=== PATIENT | female | born 1990 | race Caucasian/White ===

== ENCOUNTER 2018-04-01 10:45 | Emergency (ER) | payer MEDICAID, SELFPAY ==
[2018-04-01 10:48] VITALS: BP 150/78; PULSE 94; RESP 18; TEMP 36.4; O2SAT 99
--- NOTE | 2018-04-01 10:55 | W.ED.GENAD ---
Discharge Plan Disposition Patient Disposition: HOME Condition: Good Discharge Details Chief Complaint: RespSymp Clinical Impression: Bronchitis, Cough Primary Care Provider: Justin Reece ED Provider: Tyler Fraser Home Meds and New Rx's Prescriptions: New azithromycin 250 mg tablet See Rx Instructions .ROUTE .COMPLEX Qty: 6 RF: 0 albuterol sulfate 90 mcg/actuation HFA aerosol inhaler 1 puff IH Q6H PRN (Reason: shortness of breath or wheezing) Qty: 6.7 RF: 0 benzonatate [Tessalon Perles] 100 mg capsule 100 mg PO TID PRN (Reason: cough) Qty: 30 RF: 0 No Action norgestimate-ethinyl estradiol [Sprintec (28)] 1 EACH tablet 1 tab-cap PO DAILY Qty: 3 RF: 3 Discharge Instructions Instructions: Acute Bronchitis (ED) Additional Instructions: Please take the inhaler and cough suppressant as directed. Please take the antibiotic if you do not notice improvement of your symptoms in the next 24-48 hours. If you notice any worsening of your symptoms, or any new symptoms such as vomiting, diarrhea, fever, chills, shortness of breath, chest pain, numbness, weakness, or fainting , please return immediately to the emergency department for reevaluation. Please follow up with your primary care provider as soon as possible for reassessment and reevaluation. As always, it was a pleasure participating in your medical care today. Referrals: Justin Reece MD [Primary Care Provider] - Medical Decision Making This is a 28-year-old female who presents with 1-1/2 weeks of cough with some mild associated shortness of breath. She has a strong family history of asthma but has never been tested herself. She has had no fever or chills. She has had some posttussive emesis. She has a roommate who is a smoker. Lung sounds are clear, vital signs are reassuring with heart rate of 94, respirations of 18, being afebrile with 99% O2 saturation. We will get an x-ray to rule out pneumonia with a longevity of her symptoms. We will give a breathing treatment to see if this improves her symptoms. We will test for influenza. 11:55 AM Patient's influenza and strep are both negative. Chest x-ray shows no evidence of significant pneumonia. Vital signs continue to be reassuring. The patient has a notable feeling of improvement with her breathing treatment. Negative workup, and reassuring vital signs I feel that the patient is safe for discharge home. We will give her an inhaler for home use, as well as Decadron here for what I feel may be a component of reactive airway disease. We will give her a prescription for azithromycin, however my recommendation to the patient is since the weekend is coming up only take the antibiotic if she does not note improvement over the next 24-48 hours. We discussed red flags which to return the patient understands. I have extensively reviewed the treatment plan and discharge instructions with the patient. I have addressed all patient concerns at this time. The patient was made aware of what symptoms to monitor for that would warrant a return to the emergency department. Discussed the plan with the patient, they demonstrate verbal understanding and agreement with our assessment and plan at this time. HPI General Date/Time Provider Initiated Documentation: 04/01/18 10:54. HPI Narrative: This is a 28-year-old female with no significant past medical history except a strong family history of asthma, and a roommate who smokes, who presents today for evaluation of cough. She has had a cough for the last 1.5 weeks. She denies any significant productive sputum. She has some associated shortness of breath. She denies any significant chest pain but does admit to a small amount of pain when she does cough. This is been present only over the last 1-2 days as her cough is worsened. The patient denies any hemoptysis, fever or chills. Denies PE risk factors such as recent long car rides, immobilization, recent surgery, prior history of DVT or PE, family history of PE or DVT, morbid obesity, and smoking, hemoptysis, history of cancer. She does take exogenous estrogen as control. There appears to be no particular aggravating or relieving component. She has not gotten her flu shot this year. Patient has no additional complaints at this time. Related Data Home Medications Medication Instructions Recorded Confirmed norgestimate-ethinyl estradiol 1 tab-cap PO DAILY #3 pack 10/20/17 [Sprintec] albuterol sulfate 1 puff IH Q6H PRN #6.7 gm 04/01/18 azithromycin See Rx Instructions .ROUTE 04/01/18 .COMPLEX #6 tab benzonatate [Tessalon Perles] 100 mg PO TID PRN #30 cap 04/01/18 Previous Rx's Medication Instructions Recorded norgestimate-ethinyl estradiol 1 tab-cap PO DAILY #3 pack 10/20/17 [Sprintec] albuterol sulfate 1 puff IH Q6H PRN #6.7 gm 04/01/18 azithromycin See Rx Instructions .ROUTE 04/01/18 .COMPLEX #6 tab benzonatate [Tessalon Perles] 100 mg PO TID PRN #30 cap 04/01/18 Allergies Allergy/AdvReac Type Severity Reaction Status Date / Time No Known Drug Allergies Allergy Unverified 10/20/17 08:22 pineapple Allergy Unverified 10/20/17 08:22 mushroom AdvReac Intermediate Itching Unverified 10/20/17 08:22 General Stated Complaint: RespSymp CHENG: 4 Review of Systems Review of Systems All systems reviewed & are unremarkable except as noted in HPI and below PFSH Medical History Anxiety Depression Family History Mother Thyroid disorder Father Essential hypertension Grandmother Ovarian cancer Social History Smoking/Tobacco Use Status: Never Exam Narrative Exam Narrative: 1.Const: Well-nourished, Well-developed, appearing stated age 2.Eyes: PERRL, no conjunctival injection, and symmetrical lids. 3.ENT: Atraumatic external nose and ears. Moist MM. Neck: Symmetric, trachea midline, No thyromegaly. No evidence of erythema in the canals, no evidence of effusion behind the tympanic membranes, no evidence of significant erythema in the posterior oropharynx. No significant cervical lymphadenopathy. 4.CVS: +S1/S2, No murmurs or gallops. Peripheral pulses 2+ and equal in all extremities. Brisk capillary refill in all extremities. 5.RESP: Unlabored respiratory effort. Clear to auscultation bilaterally. No wheezes rales or rhonchi 6.GI: Soft, Nontender/Nondistended, No hepatosplenomegaly. No guarding or rebound. 7.MSK: Normocephalic/Atraumatic, Extremities w/o deformity or ttp No cyanosis or clubbing, Normal movement of all extremities. No evidence of calf tenderness. No swelling of the lower extremities. 8.Skin: Warm, Dry. No rashes or lesions. 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 Sensation grossly intact, no focal neurologic deficits. 10.Psych: (AAO) x3. Appropriate mood and affect Course Vital Signs Temperature 36.4 C L 04/01/18 10:48 Pulse 94 H 04/01/18 10:48 Respiratory Rate 18 04/01/18 10:48 Blood Pressure 150/78 H 04/01/18 10:48 Pulse Oximetry 99 04/01/18 10:48 Temperature 36.4 C L 04/01/18 10:48 Temperature Source Temporal Artery Scan 04/01/18 10:48 Pulse 94 H 04/01/18 10:48 Respiratory Rate 18 04/01/18 10:48 Respiratory Effort Non-Labored 04/01/18 10:48 Blood Pressure 150/78 H 04/01/18 10:48 Blood Pressure Position Sitting 04/01/18 10:48 Pulse Oximetry 99 04/01/18 10:48 Oxygen Delivery Method Room Air 04/01/18 10:48 Oxygen Flow Rate 0 04/01/18 10:48
[2018-04-01] MEDS: Albuterol/Ipratropium 3 ML UPD VIAL UPD (11:03)
--- NOTE | 2018-04-01 11:30 | DI.RAD_ITS ---
SYMPTOM/DIAGNOSIS: COUGH PA AND LATERAL CHEST: The heart is normal in size. The lungs are clear. The mediastinal structures and pleura appear intact. CONCLUSION: Normal chest. No evidence of acute cardiopulmonary disease.
--- NOTE | 2018-04-01 11:40 | NUR.NOTE ---
patient returned from DI Nursing Note:
[2018-04-01 11:42] VITALS: PULSE 92; RESP 20; O2SAT 99
[2018-04-01] MEDS: Dexamethasone 4 MG TAB 12 MG PO (12:06)
[2018-04-01 12:11] VITALS: BP 120/81; PULSE 92; RESP 18; TEMP 37.4; O2SAT 100
== END 2018-04-01 12:17 | disposition home or self-care (01) ==
LOC: ER 12:21
PROVIDERS: Emergency Provider Student in an Organized Health Care Education/Training Program; PCP General Practice
DX: J20.9 Acute bronchitis, unspecified (principal); Z77.22 Contact with and (suspected) exposure to environmental tobacco smoke (acute) (chronic)
CPT/HCPCS: 87449; 87880; 99283; 71046; 87070; 87081; J7620; J8540

== ENCOUNTER 2019-01-06 10:18 | Outpatient (REF) | payer MEDICAID, SELFPAY ==
--- NOTE | 2019-01-06 09:00 | PAPFT_PTH ---
PATIENT: Zuleyka Newton LOC: PAT U#:[id number] AGE/SX: 28/F ROOM: RE01/06/[address]: Jordyn Hernandez MD : 1990 BED: DIS: 01/06/2019 SPEC #: [id number] RECD: 01/06/19 12:45 STATUS: CHRISTOPHER REQ #: [id number] CHANDRIKA: 01/06/19 09:[address]: Jordyn Hernandez DEPT: [facility] Cytology RECD BY: Elsy Huntley ENTERED: 01/06/19 12:46 SP TYPE: PAPFT OTHR DR: Justin Reece Tissues: 1 - CX/ENDOCX FOR PAP SMEARS Procedures: PAP THIN PREP/UVM Screening Comments: [id number]
[2019-01-12 14:57] LABS: Chlamydia Result Negative (Negative); Specimen Description CERVIX
[2019-01-12 14:58] LABS: GC Result Negative (Negative)
== END 2019-01-06 10:38 ==
LOC: LBN 10:18
PROVIDERS: PCP General Practice; Visit Provider Obstetrics & Gynecology
DX: Z11.3 Encounter for screening for infections with a predominantly sexual mode of transmission (principal); Z12.4 Encounter for screening for malignant neoplasm of cervix
CPT/HCPCS: 87491; 87591; 88142

== ENCOUNTER 2019-05-09 10:15 | Emergency (ER) | payer MEDICAID, SELFPAY ==
[2019-05-09 10:19] VITALS: BP 140/85; PULSE 89; RESP 18; TEMP 36.9; O2SAT 98
--- NOTE | 2019-05-09 11:11 | W.ED.GENAD ---
Discharge Plan Disposition Patient Disposition: HOME Condition: Stable Discharge Details Chief Complaint: GenMedical Clinical Impression: Nerve palsy, Shingles Primary Care Provider: Justin Reece ED Provider: Mariely Chandra Home Meds and New Rx's Prescriptions: New valacyclovir [Valtrex] 1 gram tablet 1,000 mg PO TID Qty: 21 RF: 0 No Action norgestimate-ethinyl estradiol [Sprintec (28)] 0.25-35 mg-mcg tablet 1 tab PO DAILY Qty: 28 RF: 11 albuterol sulfate 90 mcg/actuation HFA aerosol inhaler 1 puff IH Q6H PRN (Reason: shortness of breath or wheezing) Qty: 6.7 RF: 0 Discharge Instructions Instructions: Shingles (ED) Additional Instructions: Use anti-inflammatory [id number] such as ibuprofen. Be sure to have food in your stomach prior to taking this medication. Use Valtrex as prescribed. Wrist splint for comfort for the next 3 to 5 days. Rest activities as tolerated. For any development of rash have PCP follow-up promptly as discussed. Follow-up with PCP or orthopedic doctor for any persistence of numbness in the arm Return for worsening symptoms, alarming symptoms, any associated weakness of the arm or if sooner needed for concerns Referrals: Syed Cannon MD [ [facility] STAFF PHYSICIAN] - Discharge Data Discharge Date/Time-TO BE ENTERED AT DEPARTURE: 05/09/19 11:54 Medical Decision Making Is a 29-year-old patient presenting to the emergency room for complaints of a burning sensation over her upper spine for 2 days. Patient reports sensation of burning has entirely relieved. No pain of the neck or back reported at this time. Patient reports she fell asleep on her arm for approximately 5 to 10 minutes and awoke with tingling in her right hand. Patient reports tingling and sensation of numbness noted in the first and second digit with part of the third digit involved. Patient reports that tingling sensation has progressed and extended distally to proximally up the forearm, elbow and humerus. Patient denies any focal pain of the arm. Patient denies any obvious weakness of the hand or arm. Patient does report a history of shingles in the past and this is somewhat remnant of the prodrome prior to shingles. Patient denies any ill feeling at this time. Denies history of IV drug use. Again patient denies any head neck or back pain at this time. On exam patient has an intact neurologic exam, no obvious focal weakness noted of the hand. No palpable tenderness throughout the arm, full range of motion of all joints of the right arm. I did discuss at length the possibility of etiologies of her pain. Patient is primarily concerned with the possibility of shingles. Will provide patient antivirals if this is prodrome related to shingles. Also recommended possibility of rib splint for neuralgia. Patient possibly related to a palsy after sleeping on her arm although this was described as a very transient time in which she was laying on her arm for 5 to 10 minutes, I find it unlikely that this would result in an arm palsy however this remains in the differential. Patient does not toxic appearing, has no systemic symptoms at this time. Patient feels comfortable with conservative treatments, use of anti-inflammatories as well as wrist splint in addition to beginning Valtrex empirically and follow-up if not improving. Referral provided for orthopedics if needed for any persistent numbness or for any other concerns or complaints. HPI General Date/Time Provider Initiated Documentation: 05/09/19 10:29. HPI Narrative: Is a 29-year-old patient who presents for complaints of a burning and tingling sensation over her spine in the upper back which she noted for 2 days which has since resolved. Patient denies any associated neck pain with range of motion or back pain. Denies any injury or trauma. Patient reports she is now experiencing a tingling in her right thumb and first finger predominantly with some involvement of this third finger. Patient reports tingling noted originally at her hand but has reported a proximal radiation and involvement of the entire arm. Patient does have a history of shingles and reports this is somewhat similar in her experience presentation. Related Data Home Medications Medication Instructions Recorded Confirmed albuterol sulfate 1 puff IH Q6H PRN #6.7 gm 04/01/18 05/09/19 norgestimate 0.25 mg-ethinyl 1 tab PO DAILY #28 tab 01/06/19 05/09/19 estradiol 35 mcg tablet valacyclovir [Valtrex] 1,000 mg PO TID #21 tab 05/09/19 Previous Rx's Medication Instructions Recorded albuterol sulfate 1 puff IH Q6H PRN #6.7 gm 04/01/18 norgestimate 0.25 mg-ethinyl 1 tab PO DAILY #28 tab 01/06/19 estradiol 35 mcg tablet valacyclovir [Valtrex] 1,000 mg PO TID #21 tab 05/09/19 Allergies Allergy/AdvReac Type Severity Reaction Status Date / Time No Known Drug Allergies Allergy Unverified 05/09/19 10:23 pineapple Allergy Unverified 05/09/19 10:23 mushroom AdvReac Intermediate Itching Unverified 05/09/19 10:23 General Stated Complaint: GenMedical CHENG: 3 Review of Systems Constitutional Constitutional: Denies chills, Denies fatigue, Denies fever(s), Denies headache(s), Denies malaise and Denies weakness ENT Ears, Nose, Mouth, and Throat: Denies dizziness, Denies headache(s) and Denies neck pain Musculoskeletal Musculoskeletal: Reports back pain, Denies neck pain, Reports numbness and Reports tingling Integumentary/Breasts Skin/Breast: Reports rash and Reports wounds Neurologic Neurologic: Denies dizziness, Denies headache(s), Reports numbness, Reports tingling and Denies weakness Endocrine Endocrine: Denies fatigue [facility] Medical History Anxiety Depression Family History Mother Thyroid disorder Father Essential hypertension Grandmother Ovarian cancer Social History Smoking/Tobacco Use Status: Never Alcohol Intake: former Drug use: Occasionally Substance use type: marijuana Do you feel safe at home: Yes Do you feel safe in your relationship?: Yes Exam Narrative Exam Narrative: CONST: Healthy appearing patient, in no acute distress. Well hydrated. Alert and oriented. HENMT: Head nomocephalic, normal to inspection. Atraumatic. Hearing grossly normal. EYES: General normal appearance. Alignment normal. Eyelids normal. Conjunctiva normal. NECK: Normal visual inspection. FROM. Trachea midline. No Midline tenderness. No pain of the paraspinal neck. CHEST: Normal insepection of the chest. RESP: Normal respiratory effort. Speaking full sentences. No cough. No audible wheezing. No retractions. Breath sounds clear, full and equal bilaterally. No wheezing, rhonchi or rales. CARDIO: No JVD. No murmur, regular rate and rhythm. MUSCULOSKELETAL: Normal Gait. FROM of all extremities. No obvious palpable tenderness through the right shoulder, humerus, elbow, forearm, wrist or hand. Patient indicates the thumb and first finger as sided numbness. Patient is intact to sharp and dull sensation on exam throughout the hand and the forearm tested as proximal as the elbow. Commercial Engineer strength intact and equal bilaterally. Able to spread all fingers and hold against resistance, able to hold okay symbol, able to flex wrist against resistance. No obvious deficit of neurologic function of the hand. No bony pain with palpation. Pulses intact distally. SKIN: Normal. Dry. No rashes. NEURO: Alert and awake. Speech clear. PSYCH: Normal affect. Cooperative. Course Vital Signs Vital signs: Vital Signs Temperature 36.9 C 05/09/19 10:19 Pulse 89 05/09/19 10:19 Respiratory Rate 18 05/09/19 10:19 Blood Pressure 140/85 05/09/19 10:19 Pulse Oximetry 98 05/09/19 10:19 Temperature 36.9 C 05/09/19 10:19 Temperature Source Skin 05/09/19 10:19 Pulse 89 05/09/19 10:19 Respiratory Rate 18 05/09/19 10:19 Respiratory Effort Non-Labored 05/09/19 10:24 Blood Pressure 140/85 05/09/19 10:19 Blood Pressure Position Sitting 05/09/19 10:19 Pulse Oximetry 98 05/09/19 10:19 Oxygen Delivery Method Room Air 05/09/19 10:19 Oxygen Flow Rate 0 05/09/19 10:19 Pain Level 8 05/09/19 10:19
--- NOTE | 2019-05-09 17:01 | NUR.NOTE ---
Nursing Note: Needs PCP, to Care Management. Rashida Cr.
== END 2019-05-09 11:54 | disposition home or self-care (01) ==
PROVIDERS: Emergency Provider Physician Assistant; PCP General Practice
DX: B02.9 Zoster without complications (principal); G58.9 Mononeuropathy, unspecified
CPT/HCPCS: 29125; 99283; L3908

== ENCOUNTER 2019-07-27 01:33 | Outpatient (CLI) | payer MEDICAID, SELFPAY ==
[2019-07-27 14:12] LABS: HCT 38.5 % (36.0-46.0); HGB 13.2 g/dL (12.0-15.5); Mean Corp. HGB Concentration 34.3 g/dL (32.0-36.0); Mean Corpuscular Hemoglobin 31.4 pg (27.0-33.0); Mean Corpuscular Volume 91.7 fL (80-95); Mean Platelet Volume 10.2 fL (8.0-11.0); Platelet Count 246 x1000/uL (130-400); RBC Distribution Width 11.9 % (11.7-14.6); White Blood Cell Count 5.08 k/cumm (4.4-10.8)
[2019-07-27 15:10] LABS: TSH (W/Ref FT4) 1.39 uIU/mL (0.36-3.74)
[2019-07-27 15:28] LABS: HCG Quant, Pregnancy < 1 mIU/mL (1-3)
== END 2019-07-27 01:53 ==
PROVIDERS: PCP General Practice; Visit Provider Obstetrics & Gynecology Gynecology
DX: N93.9 Abnormal uterine and vaginal bleeding, unspecified (principal)
CPT/HCPCS: 36415; 85027; 84443; 84702

== ENCOUNTER 2019-11-11 10:16 | Emergency (ER) | payer MEDICAID, SELFPAY ==
[2019-11-11 10:25] VITALS: BP 113/76; PULSE 90; RESP 16; TEMP 36.2; O2SAT 98
[2019-11-11 11:16] LABS: Absolute Basophil Count 0.03 10^3/uL (0.0-0.2); Absolute Eosinophil Count 0.07 10^3/uL (0.0-0.7); Absolute Lymphocyte Count 1.78 10^3/uL (1.2-3.4); Absolute Monocyte Count 0.52 10^3/uL (0.1-0.8); Absolute Neutrophil Count 1.78 10^3/uL (1.2-6.7); Basophils % 0.7; Eosinophils % 1.7; HCT 40.9 % (36.0-46.0); HGB 13.9 g/dL (11.2-15.7); Lymphocytes % 42.6; MCH 31.3 pg (27.0-33.0); MCV 92.1 fL (80-95); MPV 10.5 fL (8.0-11.0); Monocytes % 12.4; Neutrophils % 42.6; Nucleated RBC 0 %; Platelet Count 226 10^3/uL (130-400); RBC 4.44 10^6/uL (3.93-5.22); RDW 11.9 % (11.7-14.6); RDW-SD 40.1 fL; WBC 4.18 10^3/uL (4.4-10.8)
[2019-11-11 11:30] LABS: PTT Activated 25.6 sec (21.0-31.4); Prothrombin Time 9.8 sec (9.3-11.0)
[2019-11-11 11:31] LABS: ALT 15 U/L (14-59); AST 13 U/L (15-37); Albumin 3.4 g/dL (3.4-5.0); Alkaline Phosphatase 56 U/L (46-116); Anion Gap 6.4 mmol/L (3-11); BUN 9 mg/dL (7-18); Bilirubin, Total 0.5 mg/dL (0.2-1.0); CO2 26.6 mmol/L (21.0-32.0); CREATININE 0.68 mg/dL (0.55-1.02); Calcium 8.4 mg/dL (8.5-10.1); Chloride 104 mmol/L (98-107); Glucose 88 mg/dL (74-106); Potassium 3.7 mmol/L (3.5-5.1); Sodium 137 mmol/L (136-145); Total Protein 7.4 g/dL (6.4-8.2)
--- NOTE | 2019-11-11 11:52 | ED.GENADUL_ITS ---
Discharge Plan Disposition Patient Disposition: HOME Condition: Stable Discharge Details Chief Complaint: RashLesion Clinical Impression: Ecchymosis Primary Care Provider: Unknown,Unknown ED Provider: Viktor Sanders Home Meds and New Rx's Prescriptions: Continued norethindrone-e.estradiol-iron [Loestrin Fe 1.5/30 (28-Day)] 1.5 mg-30 mcg (2 1)/75 mg (7) tablet 1 tab PO DAILY Qty: 84 RF: 4 albuterol sulfate 90 mcg/actuation HFA aerosol inhaler 1 puff IH Q6H PRN (Reason: shortness of breath or wheezing) Qty: 6.7 RF: 0 Discharge Instructions Instructions: Ecchymosis (ED) Additional Instructions: At this time is unclear exactly how you obtained the bruising on your leg however at the bruising does not look like a petechiae bruise in nature. Your laboratory values are unremarkable. Please watch for new or worsening symptoms and return to the ER for any concerns. I would like you to contact your prescribing provider on Wednesday to discuss if they would like you to initiate any new medications and for proper outpatient reevaluation. Discharge Data Discharge Date/Time-TO BE ENTERED AT DEPARTURE: 11/11/19 12:00 Medical Decision Making Patient is a 29-year-old female who was recently placed on escitalipram who has noticed an area on her left thigh of nontraumatic ecchymosis. There was concerned it may be a reaction to this medication, she has since discontinued the medication. She denies any other easy bruising or bleeding. No abnormal vaginal bleeding, no hematuria, no blood from her gums when she brushes her teeth. No ecchymosis is without any tenderness, warmth, induration, fluctuance or petechiae. Difficult to definitively say this is secondary to a medication reaction or simply potentially a mild trauma that she did not realize. We di scussed our options. Will obtain routine laboratory values to evaluate her blood count, coags, platelet count. Laboratory values are unremarkable. Patient has no additional questions or concerns and is comfortable with discharge. She will not begin taking her medication again and rather she will contact her primary care provider on Wednesday to discuss if a larger coagulopathy work-up is indicated and if any other medication should be prescribed. Patient was encouraged to return to the ER for new or worsening symptoms. Medical Records Medical records reviewed: Yes I reviewed the patient's medical records. Lab Data Lab results reviewed: Yes I reviewed the patient's lab results. Lab results narrative: Laboratory Tests Range/Units 11/11/19 11/11/19 11/11/19 11:10 11:10 11:10 WBC (4.4-10.8) 10^3/uL 4.18 L RBC (3.93-5.22) 10^6/uL 4.44 Hgb (11.2-15.7) g/dL 13.9 Hct (36.0-46.0) % 40.9 MCV (80-95) fL 92.1 MCH (27.0-33.0) pg 31.3 MCHC (32.0-36.0) % 34.0 RDW (11.7-14.6) % 11.9 Plt Count (130-400) 10^3/uL 226 MPV (8.0-11.0) fL 10.5 Immature Gran % 0.0 Neutrophils % 42.6 Lymphocytes % 42.6 Monocytes % 12.4 Eosinophils % 1.7 Basophils % 0.7 Absolute Neutrophils (1.2-6.7) 10^3/uL 1.78 Absolute Lymphocytes (1.2-3.4) 10^3/uL 1.78 Absolute Monocytes (0.1-0.8) 10^3/uL 0.52 Absolute Eosinophils (0.0-0.7) 10^3/uL 0.07 Absolute Basophils (0.0-0.2) 10^3/uL 0.03 PT (9.3-11.0) sec 9.8 INR (0.9-1.1) 1.0 APTT (21.0-31.4) sec 25.6 Sodium (136-145) mmol/L 137 Potassium (3.5-5.1) mmol/L 3.7 Chloride (98-107) mmol/L 104 Carbon Dioxide (21.0-32.0) mmol/L 26.6 Anion Gap (3-11) mmol/L 6.4 BUN (7-18) mg/dL 9 Creatinine (0.55-1.02) mg/dL 0.68 Estimated GFR/1.73 m2 (mL/min/1.73m2) >= 60.00 Glucose (74-106) mg/dL 88 Calcium (8.5-10.1) mg/dL 8.4 L Total Bilirubin (0.2-1.0) mg/dL 0.5 AST (15-37) U/L 13 L ALT (14-59) U/L 15 Alkaline Phosphatase (46-116) U/L 56 Total Protein (6.4-8.2) g/dL 7.4 Albumin (3.4-5.0) g/dL 3.4 HPI General Mode of arrival: ambulatory . Date/Time Provider Initiated Documentation: 11/11/19 10:29 . Limitations to Documentation: no limitations . Information obtained by: patient . HPI Narrative: This is a 29-year-old female with history of anxiety, depression, PTSD, abnormal uterine bleeding, presents to the ER after she noticed atraumatic, painless, bruising to her left leg. Patient reports that she noticed the initial bruising 3 days ago, contacted her primary care provider, and was told to stop taking her escitalopram. She began taking that medication 2-1/2 weeks earlier and they were concerned that her symptoms may be secondary to that medication. She noticed slightly more bruising around the same area last night so decided to come to the ER for further evaluation. She is currently asymptomatic. Denies feeling lightheaded, headache, visual changes, chest pain, shortness of breath, abdominal pain, nausea, vomiting, numbness, tingling, weakness. She denies history of easy bruising or bleeding. She denies any abnormal vaginal bleeding. She denies bleeding gums when she brushes her teeth. Denies any recent illness or trauma. Related Data Home Medications Medication Instructions Recorded Confirmed albuterol sulfate 1 puff IH Q6H PRN #6.7 gm 04/01/18 11/11/19 norethindrone 1.5 mg-ethinyl 1 tab PO DAILY #84 tab 07/24/19 11/11/19 estradiol 30 mcg(21)/iron 75 mg(7) tablet Previous Rx's Medication Instructions Recorded albuterol sulfate 1 puff IH Q6H PRN #6.7 gm 04/01/18 norethindrone 1.5 mg-ethinyl 1 tab PO DAILY #84 tab 07/24/19 estradiol 30 mcg(21)/iron 75 mg(7) tablet Allergies Allergy/AdvReac Type Severity Reaction Status Date / Time No Known Drug Allergies Allergy Unverified 11/11/19 10:37 pineapple Allergy Unverified 11/11/19 10:37 mushroom AdvReac Intermediate Itching Unverified 11/11/19 10:37 General Stated Complaint: RashLesion CHENG: 3 Review of Systems Constitutional Constitutional: Denies fatigue, Denies fever(s) and Denies weakness Cardiovascular Cardiovascular: Denies chest pain and Denies dyspnea Respiratory Respiratory: Denies cough and Denies dyspnea Gastrointestinal Gastrointestinal: Denies abdominal pain, Denies nausea and Denies vomiting Genitourinary Genitourinary: Denies abnormal vaginal bleeding and Denies hematuria Musculoskeletal Musculoskeletal: Denies back pain, Denies numbness and Denies tingling Integumentary/Breasts Skin/Breast: Denies rash Neurologic Neurologic: Denies numbness, Denies tingling and Denies weakness Endocrine Endocrine: Denies fatigue Hematologic/Lymphatic Hematologic/Lymphatic: Denies easy bleeding and Denies easy bruising (Up until this episode) [facility] Medical History Abnormal uterine bleeding (AUB) (Acute) while taking OCPs. TSH/CBC/hCG ordered. Anxiety Depression Family History Mother Thyroid disorder Father Essential hypertension Grandmother Ovarian cancer Social History Smoking/Tobacco Use Status: Never Alcohol Intake: former Drug use: Rarely Substance use type: marijuana Do you feel safe at home: Yes Do you feel safe in your relationship?: Yes Exam Const General: cooperative, healthy appearing, comfortable and no acute distress Orientation: alert, awake and oriented x3 HENMT Head: normal to inspection, normocephalic and atraumatic Face and sinus: normal facial exam Mouth: moist mucous membranes Eyes Conjunctivae: conjunctivae normal Sclera: sclerae normal Neck Neck: normal visual inspection, full ROM, trachea midline and supple Resp Effort & Inspection: normal respiratory effort and able to speak in complete sentences Auscultation: clear to auscultation bilaterally Cardio Rate: regular rate Rhythm: regular rhythm GI Palpation: soft and nontender Back/Spine/Pelvis Back: No back tenderness Skin General skin exam: no rashes or lesions noted Neuro General: patient alert, patient awake, patient oriented x3, moves all extremities and no focal motor deficits Cranial Nerves: CN's II-XI intact bilaterally Cognition: normal cognition Speech: speech normal Gait: normal gait Motor: muscle tone normal throughout Sensory Exam: no sensory deficits noted Extrem Right upper extremity: normal to inspection, full ROM and normal capillary refill Left upper extremity: normal to inspection, full ROM and normal capillary refill Right lower extremity: normal to inspection, full ROM and normal capillary refill Left lower extremity: full ROM and normal capillary refill Upper/lower leg/hip images: 1. Dime sized area of macular ecchymosis. Nontender. No induration, fluctuance. No warmth. No petechiae 2. Quarter sized area of macular nontender ecchymosis. There is no induration or fluctuance. There is no warmth. No petechiae. Psych Appearance: grossly normal Mental Status: mental status grossly normal Course Vital Signs Vital signs: Vital Signs Temperature 36.2 C L 11/11/19 10:25 Pulse 90 11/11/19 10:25 Respiratory Rate 16 11/11/19 10:25 Blood Pressure 113/76 11/11/19 10:25 Pulse Oximetry 98 11/11/19 10:25 Temperature 36.2 C L 11/11/19 10:25 Temperature Source Temporal Artery Scan 11/11/19 10:25 Pulse 90 11/11/19 10:25 Respiratory Rate 16 11/11/19 10:25 Respiratory Effort Non-Labored 11/11/19 10:36 Blood Pressure 113/76 11/11/19 10:25 Blood Pressure Position Sitting 11/11/19 10:25 Pulse Oximetry 98 11/11/19 10:25 Oxygen Delivery Method Room Air 11/11/19 10:25 Oxygen Flow Rate 0 11/11/19 10:25 Pain Level 0 11/11/19 10:25 Lab/Test Results Lab/Test Results: Laboratory Tests Range/Units 11/11/19 11/11/19 11/11/19 11:10 11:10 11:10 WBC (4.4-10.8) 10^3/uL 4.18 L RBC (3.93-5.22) 10^6/uL 4.44 Hgb (11.2-15.7) g/dL 13.9 Hct (36.0-46.0) % 40.9 MCV (80-95) fL 92.1 MCH (27.0-33.0) pg 31.3 MCHC (32.0-36.0) % 34.0 RDW (11.7-14.6) % 11.9 Plt Count (130-400) 10^3/uL 226 MPV (8.0-11.0) fL 10.5 Immature Gran % 0.0 Neutrophils % 42.6 Lymphocytes % 42.6 Monocytes % 12.4 Eosinophils % 1.7 Basophils % 0.7 Absolute Neutrophils (1.2-6.7) 10^3/uL 1.78 Absolute Lymphocytes (1.2-3.4) 10^3/uL 1.78 Absolute Monocytes (0.1-0.8) 10^3/uL 0.52 Absolute Eosinophils (0.0-0.7) 10^3/uL 0.07 Absolute Basophils (0.0-0.2) 10^3/uL 0.03 PT (9.3-11.0) sec 9.8 INR (0.9-1.1) 1.0 APTT (21.0-31.4) sec 25.6 Sodium (136-145) mmol/L 137 Potassium (3.5-5.1) mmol/L 3.7 Chloride (98-107) mmol/L 104 Carbon Dioxide (21.0-32.0) mmol/L 26.6 Anion Gap (3-11) mmol/L 6.4 BUN (7-18) mg/dL 9 Creatinine (0.55-1.02) mg/dL 0.68 Estimated GFR/1.73 m2 (mL/min/1.73m2) >= 60.00 Glucose (74-106) mg/dL 88 Calcium (8.5-10.1) mg/dL 8.4 L Total Bilirubin (0.2-1.0) mg/dL 0.5 AST (15-37) U/L 13 L ALT (14-59) U/L 15 Alkaline Phosphatase (46-116) U/L 56 Total Protein (6.4-8.2) g/dL 7.4 Albumin (3.4-5.0) g/dL 3.4
[2019-11-11 12:24] VITALS: BP 113/76; PULSE 90; RESP 16; TEMP 36.2; O2SAT 98
== END 2019-11-11 12:00 | disposition home or self-care (01) ==
PROVIDERS: Emergency Provider Physician Assistant
DX: R58 Hemorrhage, not elsewhere classified (principal); T43.225A Adverse effect of selective serotonin reuptake inhibitors, initial encounter; F41.8 Other specified anxiety disorders
CPT/HCPCS: 36415; 80053; 99283; 85025; 85610; 85730

== ENCOUNTER 2020-12-20 12:03 | Emergency (ER) | payer MEDICAID, SELFPAY ==
[2020-12-20 12:13] VITALS: BP 122/84; PULSE 90; RESP 16; TEMP 37.1; O2SAT 98
--- NOTE | 2020-12-20 12:23 | ED.GENADUL_ITS ---
Discharge Plan Disposition Patient Disposition: HOME Condition: Good Discharge Details Clinical Impression: Otalgia, Pain, dental Primary Care Provider: Justin Reece ED Provider: Elsy Mane Home Meds and New Rx's Prescriptions: New penicillin V potassium 500 mg tablet 500 mg PO QID Qty: 40 RF: 0 Continued norethindrone-e.estradiol-iron [Loestrin Fe 1.5/30 (28-Day)] 1.5 mg-30 mcg (21)/75 mg (7) tablet 1 tab PO DAILY Qty: 84 RF: 4 prazosin 1 mg capsule 1 mg PO DAILY RF: 0 sertraline 25 mg tablet 50 mg PO DAILY RF: 0 albuterol sulfate 90 mcg/actuation HFA aerosol inhaler 1 puff IH Q6H PRN (Reason: shortness of breath or wheezing) Qty: 6.7 RF: 0 Discharge Instructions Instructions: Earache (ED), Toothache (ED) Additional Instructions: Pseudoephedrine as a decongestant given to help with your pain Ibuprofen 400 mg every 8 hours with food Tylenol 650 mg Take antibiotic as prescribed Yogurt daily while on antibiotics Follow-up with the dentist, I have supplied you with a list, prior PCP and please return earlier should you have new or worsening complaints Discharge Data Discharge Date/Time-TO BE ENTERED AT DEPARTURE: 12/20/20 12:32 Medical Decision Making Patient is afebrile and nontoxic She does not have any ominous evaluation upon physical exam I did place her on penicillin for dental pain with possible abscess with referred pain to her ear as I do not see any other acute abnormality in her ear She will use [id number] decongestants especially Sudafed She will take ibuprofen and Tylenol for pain control She is given a list of dental resources and low threshold to return should she have new or worsening complaints HPI General Mode of arrival: ambulatory . Date/Time Provider Initiated Documentation: 12/20/20 12:17 . Limitations to Documentation: no limitations . Information obtained by: patient . HPI Narrative: This 30-year-old female presents for report of dental pain and ear pain for the past 2 weeks. She does not currently have a dentist or PCP but she does have insurance. She denies any fever or chills. The pain is exacerbated with chewing. She denies any chest pain, shortness of breath, or chance of . She has exacerbation of pain with extremes of temperature. She denies any different swallowing. Related Data Home Medications Medication Instructions Recorded Confirmed albuterol sulfate 1 puff IH Q6H PRN #6.7 gm 04/01/18 12/20/20 norethindrone 1.5 mg-ethinyl 1 tab PO DAILY #84 tab 07/24/19 12/20/20 estradiol 30 mcg(21)/iron 75 mg(7) tablet penicillin V potassium 500 mg PO QID #40 tab 12/20/20 prazosin 1 mg PO DAILY 12/20/20 12/20/20 sertraline 50 mg PO DAILY 12/20/20 12/20/20 Previous Rx's Medication Instructions Recorded albuterol sulfate 1 puff IH Q6H PRN #6.7 gm 04/01/18 norethindrone 1.5 mg-ethinyl 1 tab PO DAILY #84 tab 07/24/19 estradiol 30 mcg(21)/iron 75 mg(7) tablet penicillin V potassium 500 mg PO QID #40 tab 12/20/20 Allergies Allergy/AdvReac Type Severity Reaction Status Date / Time No Known Drug Allergies Allergy Unverified 12/20/20 12:17 pineapple Allergy Unverified 12/20/20 12:17 mushroom AdvReac Intermediate Itching Unverified 12/20/20 12:17 General Stated Complaint: EarProblem CHENG: 4 Review of Systems All systems reviewed & are unremarkable except as noted in HPI and below PFSH Medical History (Updated 12/20/20 @ 12:28 by MITUL Taveras) Abnormal uterine bleeding (AUB) while taking OCPs. TSH/CBC/hCG ordered. Anxiety Depression Family History Mother Thyroid disorder Father Essential hypertension Grandmother Ovarian cancer Social History Smoking/Tobacco Use Status: Never Smoking risk assessment performed?: Yes Alcohol Intake: former Drug use: Rarely Substance use type: marijuana Do you feel safe at home: Yes Do you feel safe in your relationship?: Yes Exam Const General: cooperative, comfortable and no acute distress [facility] [place] Throat image: 1. Fracture noted to this, exquisitely tender, no obvious evidence of abscess visible, no fluctuant lesion, no soft palate induration, uvula midline, maintaining secretions, no trismus Other: Eustachian tube and tympanic membranes do not show evidence of acute abnormality No mastoid tenderness Course Vital Signs Vital signs: Vital Signs Temperature 37.1 C 12/20/20 12:13 Pulse 90 12/20/20 12:13 Respiratory Rate 16 12/20/20 12:13 Blood Pressure 122/84 12/20/20 12:13 Pulse Oximetry 98 12/20/20 12:13 Temperature 37.1 C 12/20/20 12:13 Temperature Source Tympanic 12/20/20 12:13 Pulse 90 12/20/20 12:13 Respiratory Rate 16 12/20/20 12:13 Respiratory Effort 12/20/20 12:19 Blood Pressure 122/84 12/20/20 12:13 Pulse Oximetry 98 12/20/20 12:13 Oxygen Delivery Method Room Air 12/20/20 12:13 Oxygen Flow Rate 0 12/20/20 12:13 Pain Level 6 12/20/20 12:13
== END 2020-12-20 12:32 | disposition home or self-care (01) ==
LOC: ER 12:42
PROVIDERS: Emergency Provider Physician Assistant; PCP General Practice
DX: H92.02 Otalgia, left ear (principal); K03.81 Cracked tooth; K08.89 Other specified disorders of teeth and supporting structures
CPT/HCPCS: 99283

== ENCOUNTER 2022-03-16 13:06 | Outpatient (REF) | payer MEDICAID, SELFPAY ==
--- NOTE | 2022-03-16 12:00 | PAPFT_PTH ---
PATIENT: Zuleyka Newton LOC: PAT U#:[id number] AGE/SX: 32/F ROOM: RE03/16/[address]: Megan Mccracken NP : 1990 BED: DIS: 03/16/2022 SPEC #: [id number] RECD: 03/16/22 16:58 STATUS: CHRISTOPHER REQ #: [id number] CHANDRIKA: 03/16/22 12:[address]: Megan Mccracken NP DEPT: [facility] Cytology RECD BY: Elsy Huntley ENTERED: 03/16/22 16:59 SP TYPE: PAPFT OTHR DR: Justin Reece Tissues: 1 - CX/ENDOCX FOR PAP SMEARS Procedures: PAP THIN PREP/UVM Screening HPV DNA PROBE Comments: [id number]
== END 2022-03-16 13:07 | disposition home or self-care (01) ==
LOC: LBN 13:06
PROVIDERS: PCP General Practice; Visit Provider Nurse Practitioner Women's Health
DX: Z12.4 Encounter for screening for malignant neoplasm of cervix (principal); Z11.51 Encounter for screening for human papillomavirus (HPV); R87.810 Cervical high risk human papillomavirus (HPV) DNA test positive
CPT/HCPCS: 88142; 87624

== ENCOUNTER 2022-10-08 08:09 | Emergency (ER) | payer SELFPAY ==
[2022-10-08 08:14] VITALS: BP 133/76; PULSE 76; RESP 15; TEMP 37.2; O2SAT 97
--- NOTE | 2022-10-08 09:06 | ED.GENADUL_ITS ---
Discharge Plan Disposition Patient Disposition: Home Discharge Details Clinical Impression: Laceration of thumb Primary Care Provider: None,None ED Provider: Elsy Mane Home Meds and New Rx's Prescriptions: Continued sertraline 25 mg tablet 50 mg PO DAILY Qty: 60 0RF prazosin 1 mg capsule 1 mg PO DAILY Qty: 30 0RF pediatric multivitamin no.42 Tablet,Chewable 1 tab PO DAILY ferrous fumarate 89 mg (29 mg iron) tablet 89 mg PO DAILY omega 1-pzv-ofq-fish oil 360 mg-108 mg- 180 mg-1,200 mg capsule 1 cap PO DAILY medroxyprogesterone 150 mg/mL syringe 150 mg IM [id number] Qty: 1 5RF lamotrigine 25 mg tablet 25 mg PO DAILY Patient Comments: TAKE 1 TABLET BY MOUTH DAILY albuterol sulfate 90 mcg/actuation HFA aerosol inhaler 1 puff IH Q6H PRN (Reason: shortness of breath or wheezing) Qty: 6.7 0RF Discharge Instructions Instructions: Laceration (ED) Additional Instructions: Keep wound clean and dry Change dressing daily and apply bacitracin Allow to air dry at night in 3 to 4 days and keep covered while you are at work Refrain from flexing and extending as much as possible Return for spreading redness, fever, worsening pain, strength or sensation change Discharge Data Discharge Date/Time-TO BE ENTERED AT DEPARTURE: 10/08/22 09:49 Medical Decision Making 32-year-old female presents with laceration to palm, left just prior to arrival at work Tetanus updated Sutures placed by me, tolerated without incident Suture removal in 10 to 12 days recommended Return precautions reviewed and patient expressed understanding, neurovascularly intact pre and postprocedure No clinical evidence of residual foreign body Medical Records Medical records reviewed: Yes I reviewed the patient's medical records. HPI General Date/Time Provider Initiated Documentation: 10/08/22 08:50 . 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 This was an accident per patient. Denies chance of . Unsure regarding tetanus status. Related Data Home Medications Medication Instructions Recorded Confirmed albuterol sulfate 90 mcg/actuation 1 puff inhalation Q6H PRN 04/01/18 10/08/22 aerosol inhaler shortness of breath or wheezing #6.7 grams ferrous fumarate 89 mg (29 mg 89 mg PO DAILY 03/16/22 10/08/22 iron) tablet medroxyprogesterone 150 mg/mL 150 mg IM [id number] #1 mL 03/16/22 10/08/22 intramuscular syringe omega 3 360 mg-dha 108 mg-epa 180 1 cap PO DAILY 03/16/22 10/08/22 mg-fish oil 1,200 mg capsule pediatric multivitamin no.42 1 tab PO DAILY 03/16/22 10/08/22 prazosin 1 mg capsule 1 mg PO DAILY #30 caps 04/23/22 10/08/22 sertraline 25 mg tablet 50 mg PO DAILY #60 tabs 04/23/22 10/08/22 lamotrigine 25 mg tablet 25 mg PO DAILY 10/08/22 10/08/22 Previous Rx's Medication Instructions Recorded albuterol sulfate 90 mcg/actuation 1 puff inhalation Q6H PRN 04/01/18 aerosol inhaler shortness of breath or wheezing #6.7 grams medroxyprogesterone 150 mg/mL 150 mg IM [id number] #1 mL 03/16/22 intramuscular syringe prazosin 1 mg capsule 1 mg PO DAILY #30 caps 04/23/22 sertraline 25 mg tablet 50 mg PO DAILY #60 tabs 04/23/22 Allergies Allergy/AdvReac Type Severity Reaction Status Date / Time pineapple Allergy Severe Unverified 10/08/22 08:19 latex Allergy Mild Hives Unverified 10/08/22 08:52 No Known Drug Allergies Allergy Unverified 10/08/22 08:19 mushroom AdvReac Intermediate Itching Unverified 10/08/22 08:19 General Stated Complaint: Laceration CHENG: 4 PFSH All Active Problems (Updated 10/08/22 @ 09:03 by MITUL Taveras) Laceration of thumb (Acute) Does not have primary care provider (Acute) PTSD (post-traumatic stress disorder) (Acute) Bipolar disorder (Acute) Depression (Acute 10/20/17) Anxiety (Acute 07/29/15) Medical History (Updated 10/08/22 @ 09:03 by MITUL Taveras) Shingles Family History Mother Thyroid disorder Father Essential hypertension Grandmother Ovarian cancer Social History (Updated 03/16/22 @ 14:53 by Megan Mccracken NP) Smoking/Tobacco Use Status: Never Smoking risk assessment performed?: Yes Alcohol Intake: current Alcohol Intake frequency: holidays/special occasions only Drug use: Occasionally Substance use type: marijuana Household members: family Housing: apartment Sexually active: Yes Do you think of yourself as: straight/heterosexual Current gender identity: female Do you feel safe at home: Yes Do you feel safe in your relationship?: Yes History History 1 Para 1 Hx # Term Pregnancies Multiple births Hx # Pregnancies Ectopic pregnancies AB induced Hx Number of Living Children AB spontaneous Past Pregnancies Del. Date GA/Weeks # Preg Succ Route Wgt Sex Labor Lgth Anesth esia Location [facility] 07/11/11 40 No Yes vaginal 3146.797 g Male Exam Extrem Other: Left palm laceration approximately 1 inch, neurovascularly intact Course Vital Signs Vital signs: Vital Signs Temperature 37.2 C 10/08/22 08:14 Pulse 76 10/08/22 08:14 Respiratory Rate 15 10/08/22 08:14 Blood Pressure 133/76 10/08/22 08:14 Pulse Oximetry 97 10/08/22 08:14 Temperature 37.2 C 10/08/22 08:14 Temperature Source Oral 10/08/22 08:14 Pulse 76 10/08/22 08:14 Respiratory Rate 15 10/08/22 08:14 Respiratory Effort Normal 10/08/22 08:17 Blood Pressure 133/76 10/08/22 08:14 Blood Pressure Position Sitting 10/08/22 08:14 Pulse Oximetry 97 10/08/22 08:14 Oxygen Delivery Method Room Air 10/08/22 08:14 Oxygen Flow Rate 0 10/08/22 08:14 Pain Level 10 10/08/22 08:17 Procedures Laceration Laceration 1: Site: hand Size (cm): 2 Description: linear Depth: simple, single layer Local Anesthetic: Lidocaine 1% Amount of anesthesia used (mL): 2 Pre-repair: wound explored and irrigated extensively Skin layer closed with: nylon Size (cm): 5-0 Number of sutures: 3 PAWSS Have you Been Recently Intoxicated or Drunk Within the Last 30 days?: No Have you Ever Experienced Previous Episodes of Alcohol Withdrawal?: No Have you ever Experienced Withdrawal Seizures?: No Have you ever Experienced Delirium Tremens(DT)s?: No Have you ever undergone Alcohol Rehabilitation Treatment (i.e, inpt ot outpatient treatment programs)?: No Have you ever Experienced Blackouts?: No Have you ever Combined Alcohol with other Downers within the last 90 days?: No Have you ever Combined Alcohol with any other Substance of Abuse during the last 90 days?: No Result: 0
== END 2022-10-08 09:49 | disposition home or self-care (01) ==
PROVIDERS: Emergency Provider Physician Assistant
DX: S61.012A Laceration without foreign body of left thumb without damage to nail, initial encounter (principal); W26.8XXA Contact with other sharp object(s), not elsewhere classified, initial encounter
CPT/HCPCS: 12001; 90471

== ENCOUNTER 2022-10-20 17:24 | Emergency (ER) | payer MEDICAID, SELFPAY ==
[2022-10-20 17:27] VITALS: BP 122/80; PULSE 75; RESP 18; TEMP 36.8; O2SAT 99
--- NOTE | 2022-10-20 17:32 | ED.GENADUL_ITS ---
Discharge Plan Disposition Patient Disposition: Home Condition: Stable Discharge Details Clinical Impression: Encounter for removal of sutures Primary Care Provider: None,None ED Provider: Josue Mccracken Home Meds and New Rx's Prescriptions: Continued sertraline 25 mg tablet 50 mg PO DAILY Qty: 60 0RF prazosin 1 mg capsule 1 mg PO DAILY Qty: 30 0RF pediatric multivitamin no.42 Tablet,Chewable 1 tab PO DAILY ferrous fumarate 89 mg (29 mg iron) tablet 89 mg PO DAILY omega 9-srw-qff-fish oil 360 mg-108 mg- 180 mg-1,200 mg capsule 1 cap PO DAILY medroxyprogesterone 150 mg/mL syringe 150 mg IM [id number] Qty: 1 5RF lamotrigine 25 mg tablet 25 mg PO DAILY Patient Comments: TAKE 1 TABLET BY MOUTH DAILY albuterol sulfate 90 mcg/actuation HFA aerosol inhaler 1 puff IH Q6H PRN (Reason: shortness of breath or wheezing) Qty: 6.7 0RF Discharge Instructions Additional Instructions: If you develop spreading redness or severe pain return to the emergency department. Otherwise there is no specific follow up needed now that the sutures are out Medical Decision Making 89 yo female comes in with suture removal. She cut her left lateral hand on the thumb and had sutures placed. No issues since, wound is healed well and has no signs of infection, no pain and full rom. Wound is ready for suture removal which nursing will perform. Differential Diagnosis Differential Diagnosis: suture removal HPI General Mode of arrival: ambulatory . Date/Time Provider Initiated Documentation: 10/20/22 17:31 . Limitations to Documentation: no limitations . Information obtained by: patient . History of Present Illness 32 year old F presents to the emergency department with the chief complaint of suture removal, described as mild, Patient started experiencing this day(s) (12) and it has been constant. No relieving factors improve symptom(s), No exacerbating factors reported . Patient notes no other symptoms.. Patient did receive the following treatments prior to arrival, none Related Data Home Medications Medication Instructions Recorded Confirmed albuterol sulfate 90 mcg/actuation 1 puff inhalation Q6H PRN 04/01/18 10/08/22 aerosol inhaler shortness of breath or wheezing #6.7 grams ferrous fumarate 89 mg (29 mg 89 mg PO DAILY 03/16/22 10/08/22 iron) tablet medroxyprogesterone 150 mg/mL 150 mg IM [id number] #1 mL 03/16/22 10/08/22 intramuscular syringe omega 3 360 mg-dha 108 mg-epa 180 1 cap PO DAILY 03/16/22 10/08/22 mg-fish oil 1,200 mg capsule pediatric multivitamin no.42 1 tab PO DAILY 03/16/22 10/08/22 prazosin 1 mg capsule 1 mg PO DAILY #30 caps 04/23/22 10/08/22 sertraline 25 mg tablet 50 mg PO DAILY #60 tabs 04/23/22 10/08/22 lamotrigine 25 mg tablet 25 mg PO DAILY 10/08/22 10/08/22 Previous Rx's Medication Instructions Recorded albuterol sulfate 90 mcg/actuation 1 puff inhalation Q6H PRN 04/01/18 aerosol inhaler shortness of breath or wheezing #6.7 grams medroxyprogesterone 150 mg/mL 150 mg IM [id number] #1 mL 03/16/22 intramuscular syringe prazosin 1 mg capsule 1 mg PO DAILY #30 caps 04/23/22 sertraline 25 mg tablet 50 mg PO DAILY #60 tabs 04/23/22 Allergies Allergy/AdvReac Type Severity Reaction Status Date / Time pineapple Allergy Severe Unverified 10/08/22 08:19 latex Allergy Mild Hives Unverified 10/08/22 08:52 No Known Drug Allergies Allergy Unverified 10/08/22 08:19 mushroom AdvReac Intermediate Itching Unverified 10/08/22 08:19 General Stated Complaint: SutureRem CHENG: 5 Review of Systems All systems reviewed & are unremarkable except as noted in HPI and below Constitutional Constitutional: Denies chills, Denies fever(s) and Denies weakness Cardiovascular Cardiovascular: Denies chest pain and Denies dyspnea Respiratory Respiratory: Denies cough and Denies dyspnea Gastrointestinal Gastrointestinal: Denies abdominal pain, Denies nausea and Denies vomiting Integumentary/Breasts Skin/Breast: Denies rash Neurologic Neurologic: Denies weakness Psychiatric Psychiatric: Denies depression PFSH All Active Problems (Updated 10/20/22 @ 17:33 by Josue Mccracken MD) Laceration of thumb (Acute) Encounter for removal of sutures (Acute) Does not have primary care provider (Acute) PTSD (post-traumatic stress disorder) (Acute) Bipolar disorder (Acute) Depression (Acute 10/20/17) Anxiety (Acute 07/29/15) Medical History (Updated 10/20/22 @ 17:33 by Josue Mccracken MD) Shingles Family History Mother Thyroid disorder Father Essential hypertension Grandmother Ovarian cancer Social History (Updated 03/16/22 @ 14:53 by Megan Mccracken NP) Smoking/Tobacco Use Status: Never Smoking risk assessment performed?: Yes Alcohol Intake: current Alcohol Intake frequency: holidays/special occasions only Drug use: Occasionally Substance use type: marijuana Household members: family Housing: apartment Sexually active: Yes Do you think of yourself as: straight/heterosexual Current gender identity: female Do you feel safe at home: Yes Do you feel safe in your relationship?: Yes History History 1 Para 1 Hx # Term Pregnancies Multiple births Hx # Pregnancies Ectopic pregnancies AB induced Hx Number of Living Children AB spontaneous Past Pregnancies Del. Date GA/Weeks # Preg Succ Route Wgt Sex Labor Lgth Anesth esia Location [facility] 07/11/11 40 No Yes vaginal 3146.797 g Male Exam Const General: no acute distress Orientation: alert HENMT Head: normal to inspection Ears: external ears normal General nose exam: external nose normal Mouth: moist mucous membranes Eyes General: appearance normal, both eyes and all related structures Neck Neck: normal visual inspection Resp Effort & Inspection: normal respiratory effort and able to speak in complete sentences Cardio Rate: regular rate Skin General skin exam: no rashes or lesions noted Neuro General: patient alert and patient oriented x3 Extrem General: full ROM and capillary refill normal Psych Mental Status: mental status grossly normal Course Vital Signs Vital signs: Vital Signs Temperature 36.8 C 10/20/22 17:27 Pulse 75 10/20/22 17:27 Respiratory Rate 18 10/20/22 17:27 Blood Pressure 122/80 10/20/22 17:27 Pulse Oximetry 99 10/20/22 17:27 Temperature 36.8 C 10/20/22 17:27 Temperature Source Oral 10/20/22 17:27 Pulse 75 10/20/22 17:27 Respiratory Rate 18 10/20/22 17:27 Blood Pressure 122/80 10/20/22 17:27 Blood Pressure Position Supine 10/20/22 17:27 Pulse Oximetry 99 10/20/22 17:27 Oxygen Delivery Method Room Air 10/20/22 17:27 Oxygen Flow Rate 0 10/20/22 17:27
== END 2022-10-20 17:41 | disposition home or self-care (01) ==
PROVIDERS: Emergency Provider Emergency Medicine
DX: Z48.02 Encounter for removal of sutures (principal)

== ENCOUNTER 2024-02-13 14:04 | Emergency (ER) | payer MEDICAID, SELFPAY ==
[2024-02-13 14:06] VITALS: BP 148/86; PULSE 90; RESP 20; TEMP 36.9; O2SAT 98
--- NOTE | 2024-02-13 14:15 | DI.CT_ITS ---
Exam(s) CT FACIAL W EXAM: CT FACIAL W CLINICAL HISTORY: L facial swelling, dental infection. TECHNIQUE: Imaging Protocol: Axial computed tomography images with coronal and sagittal reformatted images were created and reviewed CONTRAST MATERIAL: Intravenous: Omnipaque 350 Contrast volume:100 ml contrast route:IV - COMPARISON: No exams were available for comparison FINDINGS: Facial Bones: No acute fracture is noted in the facial bones. There is a small periapical lucency in the left maxilla, at the 2nd premolar tooth, consistent with dental abscess. The tooth also shows a dental chay. There is apparent erosion into the left maxillary sinus. Sinuses and Mastoids: Mild mucosal thickening left maxillary sinus Globes, extraocular muscles, optic nerves and retrobulbar fat: Normal. Upper aerodigestive tract: Normal. Mandible and bilateral temporomandibular joints: Normal. Soft tissues: Normal. No visible soft tissue abscess. Streak artifact from dental work. IMPRESSION: Small left maxillary periapical abscess with question of cortical erosion into the left maxillary sin us which shows mucoperiosteal thickening at the floor. No soft tissue abscess. RADIATION DOSE DELIVERED: 659.25mGy.cm Total DLP DATA REPOSITORY: All CT scans at this facility are submitted to the National Radiology Data Registry (NRDR) Dose Index Registry (DIR) with the [employer] (A[employer]). RADIATION OPTIMIZATION: All CT scans at this facility use at least one of these dose optimization te chniques: automated exposure control; mA and/or kV adjustment per patient size (includes targeted exa ms where dose is matched to clinical indication); or iterative reconstruction.
[2024-02-13 14:17] VITALS: BP 148/86; PULSE 90; RESP 20; TEMP 36.9; O2SAT 98
--- NOTE | 2024-02-13 14:30 | ED.GENADUL_ITS ---
Discharge Plan Disposition Patient Disposition: Home Condition: Good Discharge Details Clinical Impression: Abscess, periapical, Dental infection, Left facial swelling Primary Care Provider: Unknown,Unknown ED Provider: Melva Moy Home Meds and New Rx's Prescriptions: New amoxicillin-pot clavulanate 875-125 mg tablet 1 tab PO Q12H Qty: 24 0RF Rx Instructions: for a total of 14 days Continued sertraline 25 mg tablet 50 mg PO DAILY Qty: 60 0RF prazosin 1 mg capsule 1 mg PO DAILY Qty: 30 0RF pediatric multivitamin no.42 Tablet,Chewable 1 tab PO DAILY ferrous fumarate 89 mg (29 mg iron) tablet 89 mg PO DAILY omega 1-vzv-zvy-fish oil 360 mg-108 mg- 180 mg-1,200 mg capsule 1 cap PO DAILY medroxyprogesterone 150 mg/mL syringe 150 mg IM [id number] Qty: 1 5RF lamotrigine 25 mg tablet 25 mg PO DAILY Patient Comments: TAKE 1 TABLET BY MOUTH DAILY albuterol sulfate 90 mcg/actuation HFA aerosol inhaler 1 puff IH Q6H PRN (Reason: shortness of breath or wheezing) Qty: 6.7 0RF Discharge Instructions Instructions: Tooth Abscess ED Additional Instructions: Tylenol and ibuprofen over the counter for pain; follow the directions on the bottle. Take the antibiotic twice a day for the next 14 days until it is all gone. Call your dentist tomorrow to schedule an appointment for as soon as possible, no later than 48 hours from now, to followup on your visit today. Return to the emergency department for new or worsening symptoms including fever, difficulty breathing, inability to swallow, inability to open your mouth, neck pain, pain when move your eye, or if your swelling does not start to improve within 24-48 hours. HPI General Mode of arrival: ambulatory . Date/Time Provider Initiated Documentation: 02/13/24 14:08 . Limitations to Documentation: no limitations . Information obtained by: patient . HPI Narrative: 33yo F with hx asthma presenting with left facial swelling. Wednesday filling came out of left upper tooth. Since then has noted increasing pain and left sided facial swelling near her cheekbone extending up to around her eye. Feels like it is hard to open her eye completely. No pain with eye movement. No blurry vision. No fevers, chills, rash, nausea, vomiting, difficulty swallowing, difficulty with secretions, neck pain, or other concerns. Related Data Home Medications ?Medication ?Instructions ?Recorded ?Confirmed albuterol sulfate 90 mcg/actuation 1 puff inhalation Q6H PRN 04/01/18 02/13/24 aerosol inhaler shortness of breath or wheezing #6.7 grams ferrous fumarate 89 mg (29 mg 89 mg PO DAILY 03/16/22 02/13/24 iron) tablet medroxyprogesterone 150 mg/mL 150 mg IM [id number] #1 mL 03/16/22 02/13/24 intramuscular syringe omega 3 360 mg-dha 108 mg-epa 180 1 cap PO DAILY 03/16/22 02/13/24 mg-fish oil 1,200 mg capsule pediatric multivitamin no.42 1 tab PO DAILY 03/16/22 02/13/24 prazosin 1 mg capsule 1 mg PO DAILY #30 caps 04/23/22 02/13/24 sertraline 25 mg tablet 50 mg (2 x 25 mg) PO DAILY #60 tabs 04/23/22 02/13/24 lamotrigine 25 mg tablet 25 mg PO DAILY 10/08/22 02/13/24 amoxicillin 875 mg-potassium 1 tab PO Q12H #24 tabs 02/13/24 clavulanate 125 mg tablet Previous Rx's ?Medication ?Instructions ?Recorded albuterol sulfate 90 mcg/actuation 1 puff inhalation Q6H PRN 04/01/18 aerosol inhaler shortness of breath or wheezing #6.7 grams medroxyprogesterone 150 mg/mL 150 mg IM [id number] #1 mL 03/16/22 intramuscular syringe prazosin 1 mg capsule 1 mg PO DAILY #30 caps 04/23/22 sertraline 25 mg tablet 50 mg (2 x 25 mg) PO DAILY #60 tabs 04/23/22 amoxicillin 875 mg-potassium 1 tab PO Q12H #24 tabs 02/13/24 clavulanate 125 mg tablet Allergies Allergy/AdvReac Type Severity Reaction Status Date / Time pineapple Allergy Severe Anaphylaxis Verified 02/13/24 14:11 latex Allergy Mild Hives Unverified 10/08/22 08:52 mushroom AdvReac Intermediate Itching Verified 02/13/24 14:11 General Stated Complaint: DentalOral CHENG: 4 Review of Systems Narrative: see HPI Exam Narrative Exam Narrative: General: Alert, well appearing, well nourished, in no acute distress. Head: Normocephalic, atraumatic Neck: Trachea midline, ?Neck supple. No anterior neck tenderness. ENT: ?MMM.? Uvula midline. #13 cracked, tender to percussion. No visible intraoral abscess. Left facial swelling and tenderness over maxilla, left cheek, & lateral to left orbit. No pain with EOM Cardiac: ?No cyanosis. Resp: No respiratory distress. Speaking in full sentences. Managing secretions. Abd: ?Non-distended Extremities: ?No deformities.? Neurologic: GCS 15. PERRL.? Moves all extremities freely against gravity Course Vital Signs Vital signs: Vital Signs Temperature 36.9 C 02/13/24 14:06 Pulse 90 02/13/24 14:06 Respiratory Rate 20 02/13/24 14:06 Blood Pressure 148/86 H 02/13/24 14:06 Pulse Oximetry 98 02/13/24 14:06 Temperature 36.9 C 02/13/24 14:17 Pulse 90 02/13/24 14:17 Respiratory Rate 20 02/13/24 14:17 Respiratory Effort Normal 02/13/24 14:10 Blood Pressure 148/86 H 02/13/24 14:17 Pulse Oximetry 98 02/13/24 14:17 Oxygen Delivery Method Room Air 02/13/24 14:17 Oxygen Flow Rate 0 02/13/24 14:17 Pain Level 5 02/13/24 14:17 Medical Decision Making 33yo F with hx asthma presenting with left facial swelling and pain after filling fell out 2 days ago. Systemically well. No fevers, difficulty swallowing, or neck pain; does feel like it is difficulty to open her left eye. Slightly hypertensive on arrival, vital signs otherwise reassuring. Not septic. Mild facial swelling on exam over left maxilla & check, with tenderness over maxilla/cheek/lateral to left orbit. No significant orbital or periorbital swelling, no pain with EOMI. Left eye fully open. Exam not suggestive of reshma's, lemmieres, SVC syndrome, or deep space neck infection. Will evalute for buccal space infection or orbital cellulitis with CT. Given tylenol and toradol for pain, amox-clauv for presumed dental infection. CT independently reviewed; agree with radiology read below with periapical abscess. Orbits read as normal. On reassessment patient remains well appearing with reassuring vital signs. Will prescribe course of amox-clauv and advise dental followup. Discharged home; discharge instructions and return precautions were reviewed with patient who verbalized understanding. All questions were answered and she is in full agreement with the plan. Imaging Data Radiologic Study: Imaging: CT Scan Radiologist's impression: IMPRESSION: Left maxillary periapical abscess with possible sinus involvement. No facial abscess evident Quality:SDOH Health Related Social Needs: No Data to Display PFSH All Active Problems (Updated 02/13/24 @ 17:12 by Melva Moy MD) Abscess, periapical (Acute) Left facial swelling (Acute) Dental infection (Acute) Does not have primary care provider (Acute) PTSD (post-traumatic stress disorder) (Acute) Bipolar disorder (Acute) Depression (Acute 10/20/17) Anxiety (Acute 07/29/15) Medical History (Updated 02/13/24 @ 17:12 by Melva Moy MD) Shingles Family History Mother Thyroid disorder Father Essential hypertension Grandmother Ovarian cancer Social History (Updated 03/16/22 @ 14:53 by Megan Mccracken NP) Smoking/Tobacco Use Status: Never Smoking risk assessment performed?: Yes Alcohol Intake: current Alcohol Intake frequency: holidays/special occasions only Drug use: Occasionally Substance use type: marijuana Household members: family Housing: apartment Sexually active: Yes Do you think of yourself as: straight/heterosexual Current gender identity: female Do you feel safe at home: Yes Do you feel safe in your relationship?: Yes History History 1 Para 1 Hx # Term Pregnancies Multiple births Hx # Pregnancies Ectopic pregnancies AB induced Hx Number of Living Children AB spontaneous Past Pregnancies Del. Date GA/Weeks # Preg Succ Route Wgt Sex Labor Lgth Anesth esia Location [facility] 07/11/11 40 No Yes vaginal 3146.797 g Male
[2024-02-13] MEDS: Acetaminophen 500 MG TAB 1000 MG PO (15:25)
[2024-02-13] MEDS: Amoxicillin 875/Clav. 125 TAB PO (15:25)
[2024-02-13] MEDS: Ketorolac 15 MG/ML VIAL IVP (15:36)
[2024-02-13] MEDS: Omnipaque 350 MG/ML 100 ML BTL IJ (15:56)
[2024-02-13] MEDS: Normal Saline - Diluent 50 ML VIAL IJ (15:56)
[2024-02-13 16:18] VITALS: BP 112/73; PULSE 58; RESP 18; TEMP 36.4; O2SAT 98
--- NOTE | 2024-02-13 17:11 | DI.VRAD_ITS ---
PROCEDURE INFORMATION: Exam: CT Maxillofacial With Contrast Exam date and time: 02/13/2024 3:54 PM Age: 33 years old Clinical indication: Other: L facial swelling, dental infection, orbital cellutis? TECHNIQUE: Imaging protocol: Computed tomography of the face with contrast. Contrast material: 350; Contrast volume: 100 ml; Contrast route: INTRAVENOUS (IV); COMPARISON: No relevant prior studies available. FINDINGS: Paranasal sinuses: There is a left maxillary periapical abscess with potential cortical involvement of the base of the maxillary sinus on the left. There is mild mucoperiosteal thickening involving the left maxillary sinus. Orbital cavities: Orbits are normal. Globes are unremarkable. Bones: No acute fracture. Soft tissues: Mild asymmetric subcutaneous edema in the left facial region. No drainable collection identified. IMPRESSION: Left maxillary periapical abscess with possible sinus involvement. No facial abscess evident. Dictated and Authenticated by: Em Krishnamurthy MD. Ordering:PHILOMENA Frye MD
[2024-02-13] MEDS: Amox. 875/Clav. 125, 2 TABS/BTL 1 TAB PO (17:23)
[2024-02-13 17:27] VITALS: BP 125/81; PULSE 73; RESP 18; O2SAT 99
== END 2024-02-13 17:30 | disposition home or self-care (01) ==
PROVIDERS: Emergency Provider Student in an Organized Health Care Education/Training Program
DX: K08.89 Other specified disorders of teeth and supporting structures (principal); K04.7 Periapical abscess without sinus
CPT/HCPCS: 81025; 96374; 99285; 70487; 99284; J1885; J3490